=== PATIENT | male | born 1970 | race Caucasian/White ===

== ENCOUNTER 2025-05-09 07:42 | Outpatient (CLI) | payer BC, SELFPAY | END 2025-05-09 07:43 | disposition home or self-care (01) | PROVIDERS: PCP Family Medicine; Visit Provider Family Medicine | DX: I10 Essential (primary) hypertension (principal); E78.5 Hyperlipidemia, unspecified | CPT/HCPCS: 80053; 80061 ==

== ENCOUNTER 2025-05-28 08:48 | Outpatient (CLI) | payer BC, SELFPAY | END 2025-05-28 08:49 | disposition home or self-care (01) | LOC: NFLDREF 05-29 18:21 | PROVIDERS: PCP Family Medicine; Referring Provider Family Medicine; Visit Provider Family Medicine | DX: R73.01 Impaired fasting glucose (principal) | CPT/HCPCS: 82947 ==